=== PATIENT | female | born 1940 | race Caucasian/White ===

== ENCOUNTER 2018-03-26 14:40 | Emergency (ER) | payer MEDICARE, BC ==
--- NOTE | 2018-03-26 14:51 | UC ---
Respiratory Complaint HPI - HPI Summary HPI Summary: 78 yo female presents with post nasal drip and a dry cough for the last 5 days. She has been taking dayquill, nyquill, and cough drops with good relief - but only for a short time. She does not feel short of breath. Previous smoker, but has not smoked in 40+ years. Denies fever, chills, sinus symptoms, sore throat, SOB, chest pain. - History of Current Complaint Stated Complaint: COUGH,COLD Time Seen by Provider: 03/26/18 14:50 Hx Obtained From: Patient Onset/Duration: Gradual Onset Severity Currently: None Character: Cough: Nonproductive - Allergies/Home Medications Allergies/Adverse Reactions: Allergies Allergy/AdvReac Type Severity Reaction Status Date / Time No Known Allergies Allergy Verified 03/26/18 14:58 Home Medications: Home Medications Lisinopril TAB* [Prinivil TAB*] 5 mg PO BEDTIME 03/26/18 [History Confirmed ] PMH/Surg Hx/FS Hx/Imm Hx Endocrine History: Dyslipidemia Cardiovascular History: Hypertension GI/ History: Gastroesophageal Reflux Review of Systems Constitutional: Negative Skin: Negative Eyes: Negative ENT: Negative Respiratory: Cough Cardiovascular: Negative Gastrointestinal: Negative Neurological: Negative Psychological: Negative All Other Systems Reviewed And Are Negative: Yes Physical Exam - Summary Physical Exam Summary: GENERAL: NAD. WDWN. No pain distress. SKIN: No rashes, sores, lesions, or open wounds. HEENT: Head: AT/NC Eyes: EOM intact. Conjunctiva clear without inflammation or discharge. Ears: Hearing grossly normal. TMs intact, no bulging, erythema, or edema. Nose: Nasal mucosa pink and moist. NTTP maxillary and frontal sinus. Throat: Posterior oropharynx without exudates, erythema, or tonsillar enlargement. Uvula midline. NECK: Supple. Nontender. No lymphadenopathy. CHEST: CTAB. No r/r/w. No accessory muscle use. Breathing comfortably and in no distress. CV: RRR. Without m/r/g. Pulses intact. Cap refill <2seconds NEURO: Alert. PSYCH: Age appropriate behavior. Triage Information Reviewed: Yes Vital Signs: Vital Signs: Temp Pulse Resp BP Pulse Ox 97.6 F 62 16 150/82 97 03/26/18 14:50 03/26/18 14:50 03/26/18 14:50 03/26/18 14:50 03/26/18 14:50 Vital Signs Reviewed: Yes Respiratory Course/Dx - Course Course Of Treatment: Bronchitis. Rx for tessalon and cough syrup at bedtime. - Differential Dx/Diagnosis Provider Diagnoses: Bronchitis Discharge - Sign-Out/Discharge Documenting (check all that apply): Patient Departure All imaging exams completed and their final reports reviewed: No Studies - Discharge Plan Condition: Stable Disposition: HOME Prescriptions: Benzonatate CAP* [Tessalon 100 MG CAP*] 100 mg PO TID PRN #21 cap PRN Reason: Cough Codeine Phosphate/Guaifenesin [Guaifen-Codeine 100-10 mg/5 ml] 5 ml PO BEDTIME PRN #30 ml MDD 5mL PRN Reason: Cough Patient Education Materials: Benzonatate (By mouth), Acute Bronchitis (ED) Referrals: Obdulia Roberts MD [Primary Care Provider] - Additional Instructions: If you develop a fever, shortness of breath, chest pain, new or worsening symptoms - please call your PCP or go to the ED. Your blood pressure was mildly elevated at todays visit. Please see your primary provider within 4 weeks for recheck and re-evaluation. - Billing Disposition and Condition Condition: STABLE Disposition: Home
[2018-03-26 14:58] VITALS: BP 150/82
== END 2018-03-26 15:20 | disposition home or self-care (01) ==
LOC: UCEAST 14:40
DX: J40 Bronchitis, not specified as acute or chronic (principal); I10 Essential (primary) hypertension
CPT/HCPCS: 99202; G0463

== ENCOUNTER 2018-09-12 10:54 | Observation (INO) | payer MEDICARE, BC ==
--- NOTE | 2018-09-12 11:17 | ED ---
Neurological HPI - HPI Summary HPI Summary: Pt is a 78 y/o female who presents to the ED c/o right-sided facial droop. Her symptoms began yesterday afternoon around 15:30. However, pt did not call her PCP Dr. Arias until today, who sent her to the ED. She first noticed the symptoms because she kept biting the right side of her tongue. Pt has some left- sided facial droop, but when smiling it becomes right-sided. As per nurse Ashwin, she has mild shakiness of her left hand and states that the left side of her face feels different. However, pt states shes had shakiness for the past few months. Pt denies any paresthesia, aphasia, ALVARADO, dizziness, confusion, numbness, difficulty ambulating, weakness, CP, SOB, abdominal pain, N/V, dysuria, or hematuria. She denies any pain. She was able to ambulate into the room. She is accompanied by her and daughter, who states that her speech sounds slow and slurred. PMHx HTN. She is a former smoker and drinks alcohol daily. Vital signs: HR 65 bpm, BP 168/98, 98% O2 sat. 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 Negative: Unsteady Gait, Headache, Confusion, Dizziness, Numbness, Nausea/Vomiting, Chest Pain, Shortness of Breath TPA Considered: No - Allergy/Home Medications Allergies/Adverse Reactions: Allergies Allergy/AdvReac Type Severity Reaction Status Date / Time No Known Allergies Allergy Verified 03/26/18 14:58 Home Medications: Home Medications amLODIPine TAB* [Norvasc 5 mg TAB*] 5 mg PO DAILY 09/12/18 [History Confirmed ] PMH/Surg Hx/FS Hx/Imm Hx Endocrine/Hematology History: Denies: Hx Diabetes, Hx Thyroid Disease Cardiovascular History: Reports: Hx Hypertension Denies: Hx Hypercholesterolemia, Hx Myocardial Infarction Respiratory History: Denies: Hx Asthma, Hx Chronic Obstructive Pulmonary Disease (COPD) GI History: Denies: Hx Ulcer Musculoskeletal History: Reports: Hx of Fracture(s) - R foot - Surgical History Surgery Procedure, Year, and Place: [place], Infectious Disease History: No Infectious Disease History: Denies: Hx Hepatitis, Hx Human Immunodeficiency Virus (HIV), Traveled Outside the [place] in Last 30 Days - Family History Known Family History: Negative: Cardiac Disease, Hypertension, Diabetes - Social History Occupation: Retired Alcohol Use: Daily Hx Substance Use: No Substance Use Type: Reports: None Hx Tobacco Use: Yes Smoking Status (MU): Former Smoker Review of Systems Negative: Chest Pain Negative: Shortness Of Breath Negative: Abdominal Pain, Vomiting, Nausea Negative: dysuria, hematuria Neurological: Other - right facial droop, left hand shakiness, NEGATIVE: dizziness, aphasia, confusion, difficulty ambulating Positive: Slurred Speech - slow and slurred. Negative: Headache, Weakness, Paresthesia, Numbness All Other Systems Reviewed And Are Negative: Yes Physical Exam - Summary Physical Exam Summary: Appearance: Well-appearing, no pain distress, well-nourished Skin: Warm, color reflects adequate perfusion, dry Head: Normal Head/Face inspection, atraumatic Eyes: Conjunctiva clear ENT: Normal inspection Neck: Supple, no nodes, no JVD Respiratory: Lungs clear, normal breath sounds, no respiratory distress Cardio: RRR, No murmur, pulses normal, brisk capillary refill Abdomen: Soft, nontender Bowel sounds: Present Musculoskeletal: Strength Intact/ROM intact, no calf tenderness, no edema. Psychological: Normal Neuro: A&O x3, CN II-XII intact, motor function 5/5, sensation intact, cerebellar normal, see NIH Triage Information Reviewed: Yes Vital Signs On Initial Exam: Initial Vitals Temp Pulse Resp BP Pulse Ox 98.4 F 72 18 176/82 98 09/12/18 10:58 09/12/18 10:58 09/12/18 10:58 09/12/18 10:58 09/12/18 10:58 Vital Signs Reviewed: Yes - Monty Coma Scale Best Eye Response: 4 - Spontaneous Best Motor Response: 6 - Obeys Commands Best Verbal Response: 5 - Oriented Coma Scale Total: 15 Diagnostics - Vital Signs Vital Signs Temp Pulse Resp BP Pulse Ox 09/12/18 10:58 98.4 F 72 18 176/82 98 - Laboratory Result Diagrams: 09/12/18 11:32 09/12/18 11:32 Lab Statement: Any lab studies that have been ordered have been reviewed, and results considered in the medical decision making process. - Radiology CXR Radiology Interpretation Completed By: Radiologist Summary of Radiographic Findings: No active cardiopulmonary disease is noted. ED physician reviewed radiology report. Brain MRI Radiology Interpretation Completed By: Radiologist Summary of Radiographic Findings: 1. SMALL FOCUS OF RESTRICTED DIFFUSION WITHIN THE LEFT BASAL GANGLIA CONSISTENT WITH SUBACUTE NONHEMORRHAGIC INFARCT. 2. ELEVATED T2/FLAIR SIGNAL IN THE PERIVENTRICULAR, SUBCORTICAL, AND PONTINE WHITE MATTER, NONSPECIFIC, BUT SUGGESTIVE OF CHRONIC SMALL VESSEL ISCHEMIC CHANGE. ED physician reviewed radiology report. - CT Brain CT CT Interpretation Completed By: Radiologist Summary of CT Findings: No intracranial mass or hemorrhage is noted. ED physician reviewed radiology report. - EKG 12:00 Cardiac Rate: NL - 61 bpm EKG Rhythm: Sinus Rhythm ST Segment: Normal Ectopy: None EKG Comparison: Other - No prior to compare. Summary of EKG Findings: An EKG at 12:00 reveals nml AV/IV CT, nml QTc, and nml axis. No acute changes. NIH Scale - NIH Scale Level of Consciousness: Alert/Keenly Responsive Ask Patient the Month and His/Her Age: Both Correct Ask Pt to Open/Close Eyes and Regional Sales Executive/Release Non-Paretic Hand: Both Correctly Best Gaze (Only Horizontal Eye Movement): Normal Visual Field Testing: No Visual Loss Facial Paresis-Pt to Smile & Close Eyes or Grimace Symmetry: Normal/Symmetrical Motor Function - Right Arm: No Drift-Holds 10 Seconds Motor Function - Left Arm: No Drift-Holds 10 Seconds Motor Function - Right Leg: No Drift-Holds 10 Seconds Motor Function - Left Leg: No Drift-Holds 10 Seconds Limb Ataxia-Must be out of Proportion to Weakness Present: Absent Sensory (Use Pinprick to Test Arms/Legs/Trunk/Face): Normal Best Language (Describe Picture, Name Items): No Aphasia Dysarthria (Read Several Words): Normal Extinction and Inattention: No Abnormality Total Score: 0 Re-Evaluation - Re-Evaluation First Eval Re-Evaluation Time: 11:42 Change: Unchanged Comment: Pt is now going to CT. Second Eval Re-Evaluation Time: 13:16 Change: Unchanged Comment: There is no change in her physical exam. When compared to a prior picture, she definitely has a right-sided facial droop. Course/Dx - Course Course Of Treatment: Pt is a 78 y/o female who presents to the ED c/o right- sided facial droop and slurred speech since 15:30 yesterday. A physical exam was normal. GCS of 15. NIH of 0. A CXR was negative. A brain CT was negative. An EKG revealed a normal rate of 61 bpm. Pt medications reviewed this visit. Nurses notes reviewed. Allergies noted. Did not call a Code [facility] because the pt is out of the window. As per Dr. Navarrete pt should be admitted for CVA. Pt is admitted to Dr. Miles with a final dx of CVA. She is agreeable with this plan. - Diagnoses Provider Diagnoses: CVA (cerebral vascular accident) - Physician Notifications Discussed Care Of Patient With: Aimee Navarrete Time Discussed With Above Provider: 13:13 Instructed by Provider To: Other - Dr. Navarrete will see the pt in the ED. At 13: 40 Dr. Navarrete arrived to the room. He states the pt should be admitted for CVA. Dr. Navarrete believes the stroke to be a lacunar stroke and will give ASA and Plavix. At 14:00 Dr. Miles accepted for admission. Discharge - Sign-Out/Discharge Documenting (check all that apply): Patient Departure - Admit Patient Received Moderate/Deep Sedation with Procedure: No - Discharge Plan Condition: Stable Disposition: ADMITTED TO [facility] - Attestation Statements Document Initiated by Scribe: Yes Documenting Scribe: Sade Rodriguez Provider For Whom Scribe is Documenting (Include Credential): Denisha Tovar MD Scribe Attestation: Sade Rodriguez, scribed for Denisha Tovar MD on 09/12/18 at [id number].
[2018-09-12] MEDS ORDERED: NS 0.9% 1000 ML** 1,000 ML IV ONE (11:19)
[2018-09-12 11:45] LABS: ABS Basophils 0.1 10^3/ul (0-0.2); ABS Eosinophils 0.2 10^3/ul (0-0.6); ABS Monocytes 0.4 10^3/ul (0-0.8); ABS Neutrophils 3.4 10^3/ul (1.5-7.7); ABS Nucleated RBC 0 10^3/ul; Eosinophil % 4.7 %; Hematocrit 42 % (33-41); Hemoglobin 14.3 g/dL (12.0-16.0); Lymphocyte % 20.4 %; Mean Corpuscular HGB Conc 34 g/dL (31-36); Mean Corpuscular Hemoglobin 32 pg (27-31); Mean Corpuscular Volume 93 fL (80-97); Mean Platelet Volume 7.5 fL (7.4-10.4); Nucleated Red Blood Cells % 0.1; Platelet Count 325 10^3/uL (150-450); Red Cell Distribution Width 14 % (10.5-15); White Blood Count 5.2 10^3/uL (3.5-10.8)
[2018-09-12 11:54] LABS: Activated Partial Thrombo Time 31.2 seconds (26.0-36.3); INR 0.9 (0.77-1.02)
[2018-09-12 12:03] LABS: ALT 13 U/L (7-52); AST 17 U/L (13-39); Albumin 4.2 g/dL (3.2-5.2); Albumin/Globulin Ratio 1.6 (1-3); Alkaline Phosphatase 71 U/L (34-104); Anion Gap 6 mmol/L (2-11); Blood Urea Nitrogen 11 mg/dL (6-24); CO2 Carbon Dioxide 29 mmol/L (22-32); Calcium 9.4 mg/dL (8.6-10.3); Chloride 105 mmol/L (101-111); EGFR African American 115.4 (>60); EGFR Non-African American 95.4 (>60); Globulin 2.6 g/dL (2-4); Glucose 113 mg/dL (70-100); Potassium 3.6 mmol/L (3.5-5.0); Sodium 140 mmol/L (135-145); Total Protein 6.8 g/dL (6.4-8.9)
[2018-09-12 12:18] LABS: Alcohol < 10 mg/dL (<10)
[2018-09-12 13:34] LABS: Urine Appearance Clear; Urine Bacteria Absent (Absent); Urine Bilirubin Negative (Negative); Urine Blood 1+ (Negative); Urine Color Straw; Urine Glucose Negative (Negative); Urine Ketones Negative (Negative); Urine Nitrite Negative (Negative); Urine Protein Negative (Negative); Urine Red Blood Cell Trace(0-2/hpf) (Absent); Urine Specific Gravity 1.004 (1.010-1.030); Urine Squamous Epithelial Cell Present (Absent); Urine Urobilinogen Negative (Negative); Urine White Blood Cell Trace(0-5/hpf) (Absent)
[2018-09-12 14:13] LABS: Barbiturates Urine Screen None Detected (None Detect); Benzodiazepine Urine Screen None Detected (None Detect); Urine Cannabinoids Screen None Detected (None Detect)
[2018-09-12] MEDS ORDERED: Acetaminophen TAB* 325 MG PO PRN (14:39)
[2018-09-12] MEDS ORDERED: Magnesium Hydroxide LIQ* 30 ML UDC PO PRN (14:39)
[2018-09-12] MEDS ORDERED: Al Hydrox/Mg Hydrox/Simet LIQ* 30 ML UDC PO PRN (14:39)
[2018-09-12] MEDS ORDERED: Aspirin TAB* 325 MG PO ONE (14:50)
--- NOTE | 2018-09-12 15:18 | CONSULT ---
Consult Consult: Ms. Garcias is a 78-year-old female who presented with one day history of right facial weakness. I suspect she has a small lacunar stroke in the presence of high BP. She has an UMN weakness and no weakness to eye closure; therefore, it is unlikely to be Dubose's palsy. I have ordered an MRI of the brain. Please start her on aspirin 81 mg daily, Plavix 75 mg daily, and atorvastatin 40 mg nightly. Please see dictated consult note.
[2018-09-12] MEDS ORDERED: hydrALAZINE IV* 20 MG/ML VIAL IV SLOW PU PRN (16:27)
--- NOTE | 2018-09-12 16:39 | CONS ---
DATE OF CONSULTATION: 09/12/2018. CONSULTING PROVIDER: Dr. Denisha Tovar. REASON FOR CONSULTATION: Right facial droop. HISTORY OF PRESENT ILLNESS: Ms. Aby Garcias is a 78-year-old female with a past medical history of hypertension who presented to [facility] today with new onset of right facial droop. The patient does not recall exactly when the symptoms started, but the noticed drooping of the right side of the face last night after the patient had made dinner. She stated that she noticed some change in her voice and some appearance changes at approximately 12 o'clock on 09/11/2018. She denied any headache, visual disturbance, swallowing difficulty, or focal weakness. She denied any paresthesia. Last known well is unknown. NIH stroke scale is 1 for right facial droop. She was not a candidate for IV TPA or mechanical thrombectomy because there is no last known well time and her NIH stroke scale is low at 1. The patient has been stressed out and her blood pressure has been elevated because she is planning a trip to [place], which she would take off tomorrow. MEDICATIONS: 1. Amlodipine 5 mg daily. 2. She is aspirin naive. FAMILY HISTORY: Mother suffered from a stroke. SOCIAL HISTORY: She lives with her . She denied any excessive alcohol intake or tobacco use. REVIEW OF SYSTEMS: A 14 point review of systems was obtained and otherwise negative, except for what was mentioned in the HPI. PHYSICAL EXAM: General: Well-nourished, well-developed female in no acute distress. Vital Signs: Temperature 98.4, heart rate of 71, respiratory rate of 19, oxygen saturation 97, blood pressure of 191/79. HEENT: Head normocephalic , atraumatic. Eyes: Conjunctivae/corneas are clear. Neck: Supple and symmetrical with no carotid bruit. Lungs: Clear to auscultation bilaterally. Cardiovascular: Regular rate and rhythm with normal S1, S2. Extremities: Normal range of motion with no cyanosis. Skin: No skin lesions or lacerations. Psych: Affect is broad and normal mood. Neurological: Awake, alert, oriented to person, place, time, and general circumstances. Speech and language, including expression, naming, repetition, and comprehension were assessed and found to be normal. Cranial Nerves: Normal confrontation testing bilaterally. Sensation is intact on the forehead, cheeks, and jaw region bilaterally. There is a mild right facial droop with normal strength eyebrow elevation and eye closure. Symmetrical palatal elevation. Normal strength against shoulder shrug. Tongue is symmetrical and midline with no atrophy or fasciculation. Motor Examination: No abnormal movement or pronator drift. 5/5 strength in the upper and lower extremities proximal and distally symmetrically. Reflexes right/left 2/2, biceps 2/2, triceps 2/2, patella 2/3, ankle 2/2, slightly extensor/flexor. Sensation is intact to light touch throughout. Coordination: Normal [id number] and rapid alternating movements. Gait and station: Narrow based, normal stance. LABORATORY DATA: WBC 5.2, hemoglobin 14.3, hematocrit 42, platelet 325; sodium 140, potassium 3.6, chloride 105, creatinine 0.61, lactic acid 0.9. Urine analysis undetected. Urine toxicology is negative. IMAGING STUDIES: CT head without contrast was completed and showed no acute intracranial abnormality. MRI of the brain without contrast showed evidence of small lacunar stroke in the left lenticulostriate/genu of the internal capsule. There is also evidence of chronic small vessel ischemic changes. I personally reviewed this study. ASSESSMENT AND RECOMMENDATION: 1. Acute lacunar stroke in the left lenticulostraite branches due to chronic hypertension. Stress is probably playing a role as the patient was getting everything arranged and ready for her big trip to [place] tomorrow. Her blood pressure is elevated in the ED with systolic ranging as high as 190's. NIH stroke scale is 1. She is not a candidate for IV TPA or mechanical thrombectomy due to the low NIH stroke scale and unknown exact last known well time. The patient is aspirin naive. Recommendation: Please start aspirin 81 mg daily and Plavix 75 mg daily for a total of 28 days. I started the patient on Atorvastatin 40 mg daily. Please check a lipid panel. Please obtain a 2D transthoracic echo with bubble study. Please obtain a carotid ultrasound. No need to evaluate the intracranial vasculature given that the patient has chronic hypertension, her blood pressure is elevated, and this is a lacunar stroke. Discussed secondary stroke prevention. No need for PT/OT/ERCO MACHINE OPERATOR evaluation and treatment since the patient does not have any significant disability and is ambulatory without any limitation. Please do a bedside swallow evaluation. 2. Hypertension: Allow permissive hypertension in the next 24 hours. 3. DVT prophylaxis with Heparin 5,000 units subcutaneously every 8 hours. 4. Anticoagulation therapy: There is no indication for long-term full dose anticoagulation therapy since the patient does not have any evidence of atrial fibrillation. TIME SPENT: 70 minutes of which more than 50 percent was spent obtaining history, examining the patient, and discussing the treatment plan with the patient and her spouse at the bedside. [id number]/[facility] #: [id number] MTDRadha
--- NOTE | 2018-09-12 16:39 | HP ---
ADDENDUM: DIAGNOSTIC STUDIES/LAB DATA: EKG: EKG on 09/12/18, sinus rhythm at a rate of 61 beats per minute, QTc 441, normal axis, no T-wave changes. On 09/12/18, brain MRI. Impression: "Small focus of restrictive diffusion within the left basal ganglia consistent with subacute nonhemorrhagic infarct. Elevated T2/FLAIR signal in the periventricular, subcortical and pontine white matter, nonspecific, but suggestive of chronic small vessel ischemic change." ASSESSMENT AND PLAN: The patient is a 78-year-old female with past medical history of hypertension, who presents to the emergency department with facial droop that started approximately 20 hours prior. The patient would be admitted in observation for: 1. Subacute lacunar cerebrovascular accident. Confirmed with brain MRI. Dr. Navarrete has already seen the patient. He recommends initiating Plavix, statin, and daily aspirin. A 325 aspirin has already been given. Echo with bubble study ordered. Carotid ultrasound ordered. Fasting lipids and hemoglobin A1c ordered. Nursing swallowing study ordered prior to the patient receiving diet. 2. Chronic condition. Hypertension. Holding home amlodipine. Dr. Navarrete recommends maintaining the patient's current blood pressure at this time to maintain perfusion. Recommends lowering blood pressure only if over 220 systolic. 3. FEN: The patient is to receive low sodium diet after she passes the nursing swallow study. 4. Code status: The patient is a full code. 5. DVT prophylaxis: The patient has a high DVT risk level 4. Lovenox daily has been initiated. TIME SPENT: Approximately 55 minutes were spent on this admission, approximately half of this time was spent at bedside. This case was reviewed by my attending physician, Dr. Odalis Miles, and she agrees with this assessment and plan. SCAR TEE [id number]/[facility] #: [id number] MELO
--- NOTE | 2018-09-12 16:48 | HP ---
HISTORY AND PHYSICAL: ADDENDUM: DATE OF VISIT: 09/12/18 Dr. Navarrete stated that MRI/CTA is not necessary at this time. SCAR TEE [id number]/[facility] #: [id number] [facility] SYSTEMRadha
[2018-09-12] MEDS: Clopidogrel TAB* 75 MG PO SCH (16:57)
[2018-09-12] MEDS: Enoxaparin(*) 40 MG/0.4 ML SYR SUBCUT SCH (16:57)
[2018-09-12 17:14] LABS: Activated Partial Thrombo Time 30.8 seconds (26.0-36.3); INR 0.96 (0.77-1.02)
--- NOTE | 2018-09-12 17:55 | HP ---
CC: Dr. Obdulia Roberts* HISTORY AND PHYSICAL: DATE OF ADMISSION: 09/12/18 PRIMARY CARE PROVIDER: Dr. Obdulia Roberts. NEUROLOGIST: Dr. Aimee Navarrete. ATTENDING PHYSICIAN: Dr. Odalis Miles * (dictated by SCAR Locke). CHIEF COMPLAINT: Facial droop. HISTORY OF PRESENT ILLNESS: Aby Garcias is a 78-year-old female with past medical history of hypertension, who presents to the emergency room with facial droop. Facial droop started the day prior at approximately 3 p.m. The patient noticed that she was speaking differently than usual. She and her are unsure of the exact time when they noticed that her right-sided facial droop began. They are both unsure if the drooping has worsened since this time yesterday. The patient denies visual changes, focal weakness, paresthesias, anesthesias, headaches, visual changes, and gait disturbances. Denies recent fall. EMERGENCY DEPARTMENT COURSE: Vital signs upon arriving to the emergency room were temperature of 98.4 degrees Fahrenheit, pulse rate of 72 beats per minute, respiratory rate of 18, oxygen saturation of 98% on room air, blood pressure of 176/82. Labs were overall within normal limits except for elevated glucose to 113. One liter of normal saline was administered in the emergency department. The hospitalist team was asked to evaluate the patient for admission. PAST MEDICAL HISTORY: Hypertension. PAST SURGICAL HISTORY: 1. C-sections in 1968 and 1972. 2. Back surgery in 1989. HOME MEDICATIONS: Amlodipine 5 mg p.o. daily. ALLERGIES: No known drug allergies. FAMILY HISTORY: Father at age 92 of a brain aneurysm. Father had a history of hypertension. Mother at age 86 of unknown cause, though the patient mentions that the mother 6 weeks after her father . Denies history of CVA, TIA, or CAD in her siblings and her children. SOCIAL HISTORY: The patient lives with her , Simone, in [place]. Her is her surrogate decision maker. They have 4 children together. The patient quit smoking cigarettes in approximately the year 1999, prior to that she has smoked for approximately 40 years. The patient drinks 1 alcoholic beverage per day, usually 1 glass of wine or 1 shot of whiskey. The patient denies use of illicit drugs. The patient is retired. REVIEW OF SYSTEMS: An 11-point review of systems was completed and all pertinent positives and negatives are in the HPI. All other systems are negative. PHYSICAL EXAMINATION HEENT: Head: Normocephalic and atraumatic. Eyes: PERRLA and sclerae anicteric. No nystagmus. Visual funez intact to confrontation. ENT: Mucous membranes moist. Tongue midline. NECK: Supple. RESPIRATORY: Clear to auscultation without adventitious lung sounds. CARDIO: Regular rate and rhythm without murmurs, rubs, or gallops. No bruits appreciable at carotid arteries. ABDOMEN: Abdomen is soft, nontender, and nondistended. EXTREMITIES: No clubbing or edema. No calf tenderness bilaterally. NEURO: The patient is alert and oriented x3. Strength is 5/5 bilaterally. Sensation intact bilaterally throughout. The patient has right-sided facial droop at rest and with smiling and baring teeth. The patient is able to equally raise eyebrows. DIAGNOSTIC STUDIES/LAB DATA: White blood cell count 5.2, hemoglobin 14.3, hematocrit 42, platelet count 325. INR 0.90. Sodium 140, potassium 3.6, chloride 105, carbon dioxide 29, BUN 11, creatinine 0.61, glucose 113, lactic acid 0.9. Troponin 0.00. On 09/12/18, chest x-ray, impression: "No active cardiopulmonary disease is noted." On 09/12/18, brain CT, impression: "No intracranial mass or hemorrhage is noted." EKG on 09/12/18, sinus rhythm at a rate of 61 beats per minute, QTc 441, normal axis, no T-wave changes. On 09/12/18, brain MRI. Impression: "Small focus of restrictive diffusion within the left basal ganglia consistent with subacute nonhemorrhagic infarct. Elevated T2/FLAIR signal in the periventricular, subcortical and pontine white matter, nonspecific, but suggestive of chronic small vessel ischemic change." ASSESSMENT AND PLAN: The patient is a 78-year-old female with past medical history of hypertension, who presents to the emergency department with facial droop that started approximately 20 hours prior. The patient would be admitted in observation for: 1. Subacute lacunar cerebrovascular accident. Confirmed with brain MRI. Patient is outside the window for tPA. Patient is not a candidate for embolectomy. Dr. Navarrete has already seen the patient and does not recommend additional imaging with angiography. He recommends initiating Plavix, statin, and daily aspirin. A 325 aspirin has already been given. Echo with bubble study ordered. Carotid ultrasound ordered. Fasting lipids and hemoglobin A1c ordered. Nursing swallowing study ordered prior to the patient receiving diet. Patient's only residual deficit is the right sided facial droop. PT/OT not ordered because patient has no weakness or paresthesias of extremities. 2. Chronic condition. Hypertension. Holding home amlodipine. Dr. Navarrete recommends maintaining the patient's current blood pressure at this time to maintain perfusion. Recommends lowering blood pressure only if over 220 systolic. 3. FEN: The patient is to receive low sodium diet after she passes the nursing swallow study. 4. Code status: The patient is a full code. 5. DVT prophylaxis: The patient has a high DVT risk level 4. Lovenox daily has been initiated. TIME SPENT: Approximately 55 minutes were spent on this admission, approximately half of this time was spent at bedside. This case was reviewed by my attending physician, Dr. Odalis Miles, and she agrees with this assessment and plan. SCAR LOCKE [id number]/CPS #: [id number]/CPS #: [id number]/CPS #: [id number] MELO
[2018-09-12] MEDS ORDERED: Atorvastatin* 40 MG TAB PO SCH (21:00)
[2018-09-13 05:42] LABS: ABS Basophils 0.1 10^3/ul (0-0.2); ABS Eosinophils 0.3 10^3/ul (0-0.6); ABS Lymphocytes 1.5 10^3/ul (1.0-4.8); ABS Monocytes 0.5 10^3/ul (0-0.8); ABS Neutrophils 3.1 10^3/ul (1.5-7.7); ABS Nucleated RBC 0 10^3/ul; Hematocrit 38 % (33-41); Lymphocyte % 27.4 %; Mean Corpuscular HGB Conc 34 g/dL (31-36); Mean Corpuscular Hemoglobin 31 pg (27-31); Mean Corpuscular Volume 93 fL (80-97); Mean Platelet Volume 7.6 fL (7.4-10.4); Nucleated Red Blood Cells % 0; Platelet Count 287 10^3/uL (150-450); Red Blood Count 4.12 10^6 /uL (3.70-4.87); Red Cell Distribution Width 13 % (10.5-15); White Blood Count 5.4 10^3/uL (3.5-10.8)
[2018-09-13 05:59] LABS: BUN/Creatinine Ratio 11.9 (8-20); Calcium 8.7 mg/dL (8.6-10.3); EGFR African American 119.9 (>60); EGFR Non-African American 99.1 (>60); HDL Cholesterol 55.4 mg/dL; Potassium 3.4 mmol/L (3.5-5.0)
[2018-09-13] MEDS: Clopidogrel TAB* 75 MG PO SCH (08:21)
[2018-09-13] MEDS ORDERED: Aspirin 81 mg CHEW TAB* 81 MG TAB.CHEW PO SCH (09:00)
--- NOTE | 2018-09-13 09:27 | PN ---
Subjective Date of Service: 09/13/18 Length of Stay: 1 Days Neurology is following for stroke. Interval History: She is in good spirits today. She has no focal weakness. The right facial weakness is improving. She cancelled her trip to [place]. Review of Systems: Denied CP, SOB, or palpitations. Objective Active Medications: Acetaminophen (Tylenol Tab*) 650 mg PO Q4H PRN PRN Reason: FEVER/PAIN Al Hydrox/Mg Hydrox/Simethicone (Maalox Plus*) 30 ml PO Q6H PRN PRN Reason: INDIGESTION Aspirin (Aspirin 81 Mg Chew Tab*) 81 mg PO DAILY [facility] Last Admin: 09/13/18 08:21 Dose: 81 mg Atorvastatin Calcium (Lipitor*) 40 mg PO 2100 [facility] Last Admin: 09/12/18 21:39 Dose: 40 mg Clopidogrel Bisulfate (Plavix Tab*) 75 mg PO DAILY [facility] Last Admin: 09/13/18 08:21 Dose: 75 mg Enoxaparin Sodium (Lovenox(*)) 40 mg SUBCUT Q24H [facility] Last Admin: 09/12/18 16:57 Dose: 40 mg Hydralazine HCl (Apresoline Iv*) 5 mg IV SLOW PU Q6H PRN PRN Reason: SYSTOLIC BP GREATER THAN: Magnesium Hydroxide (Milk Of Magnjennifer Liq*) 30 ml PO Q4H PRN PRN Reason: CONSTIPATION Vital Signs 09/12/18 09/12/18 09/12/18 10:58 11:19 11:22 Temperature 98.4 F Pulse Rate 72 Respiratory 18 19 Rate Blood Pressure 176/82 173/94 (mmHg) O2 Sat by Pulse 98 97 Oximetry 09/12/18 09/12/18 09/12/18 11:38 12:00 12:16 Temperature Pulse Rate 68 62 59 Respiratory 20 17 17 Rate Blood Pressure 168/98 187/100 156/81 (mmHg) O2 Sat by Pulse 96 95 96 Oximetry 09/12/18 09/12/18 09/12/18 12:30 12:45 13:06 Temperature Pulse Rate 60 61 66 Respiratory 14 18 17 Rate Blood Pressure 152/76 162/88 (mmHg) O2 Sat by Pulse 97 98 98 Oximetry 09/12/18 09/12/18 09/12/18 13:07 13:15 13:30 Temperature Pulse Rate 61 66 61 Respiratory 16 18 14 Rate Blood Pressure 179/87 164/82 147/76 (mmHg) O2 Sat by Pulse 98 97 97 Oximetry 09/12/18 09/12/18 09/12/18 13:46 15:20 15:54 Temperature 98.9 F 97.5 F Pulse Rate 60 62 Respiratory 19 17 16 Rate Blood Pressure 191/79 175/97 173/71 (mmHg) O2 Sat by Pulse 96 98 Oximetry 09/12/18 09/12/18 09/13/18 19:31 20:00 00:49 Temperature 97.6 F 97.3 F Pulse Rate 65 60 Respiratory 18 18 16 Rate Blood Pressure 157/72 154/74 (mmHg) O2 Sat by Pulse 97 97 Oximetry 09/13/18 09/13/18 09/13/18 04:15 07:22 07:25 Temperature 97.9 F 97.2 F Pulse Rate 60 57 Respiratory 16 16 16 Rate Blood Pressure 163/67 160/75 (mmHg) O2 Sat by Pulse 96 96 Oximetry Intake and Output Last 24 Hours 09/11/18 09/12/18 09/13/18 09/14/18 06:59 06:59 06:59 06:59 Intake Total 1240 Balance 1240 Weight 137 lb Intake: IV Fluids 1000 Oral 240 Oxygen Devices in Use Now: None Neurology Exam: General: Well nourished, well developed, and in no acute distress HEENT: Normocephelic/atraumatic, sclera anicteric, mucous membranes moist Neck: Supple Chest: Clear to auscultation bilaterally Cardiovascular: Regular rate and rhythm without murmurs, rubs, gallops Extremities: No clubbing, cyanosis, or edema Neurological Findings: Awake, alert, and oriented to person, place, and time. Speech: fluent without dysarthria, repetition intact Cranial Nerve: PERRL, EOM intact, mild right facial droop Motor: s/s throughout, proximal and distal extremities x4 tone/bulk normal Sensation: intact to LT/PP bilaterally upper and lower extremities Deep Tendon Reflex: 2+ symmetric in the upper/lower extremities, Babinski - down going Finger to nose. Reduce rapid alternative movements on the right Gait: intact with good arm swing and stride Result Diagrams: 09/13/18 05:17 09/13/18 05:17 Assessment/Plan 1. Acute left lacunar stroke involving the left lenticulostraite branches- Etiology: chronic hypertension. She is tolerating DAPT and atorvastatin therapies. Discontinue Plavix on 2018. LDL- 122 BP goal: normotensive. Stroke education and counseling was done today. She was advised to reduce her sodium intake and start exercising. Pending carotid ultrasound and 2-D TTE. 2. Hypertension- restart Norvasc 5 mg daily. Disposition: to home today if the above testing is unremarkable. I will be more than happy to follow-up with her in 4 weeks. We will arrange a follow up.
[2018-09-13 12:32] VITALS: BP 165/82
[2018-09-13] MEDS ORDERED: Potassium Chlor TAB* 20 MEQ TAB.ER PO ONE (12:35)
[2018-09-13] MEDS: Enoxaparin(*) 40 MG/0.4 ML SYR SUBCUT SCH (13:45)
--- NOTE | 2018-09-13 14:19 | ECHO ---
Patient: SAKINA PAUL [facility] Rec#: [id number] : 1940 Date: 09/13/2018 Age: 78y Height: 157 cm / 61.8 in Weight: 62 kg / 136.6 lbs Sex: F BSA: 1.62 Room#: 433 Admit Date#: 09/12/2018 Type: Inpatient Referring: Deisy Colbert Reading: Dixon Arias MD Production Sorter: Marta Park RDCS CC: Obdulia Roberts MD Transthoracic Echocardiogram Indication: TIA BP: 163/67 HR: 59 Rhythm: Bradycardia Findings History: HTN, smoker. Technical Comments: The study quality is fair. Completed at 1330. Left Ventricle: The left ventricular chamber size is normal. Mild concentric left ventricular hypertrophy is observed. There is a prominent septal knuckle. Global left ventricular wall motion and contractility are within normal limits. There is normal left ventricular systolic function. The estimated ejection fraction is 60-65%. Abnormal left ventricular diastolic function is observed. Abnormal left ventricular diastolic filling is observed, consistent with impaired relaxation. Left Atrium: The left atrial chamber size is normal. Right Ventricle: Moderator Band present. The right ventricular cavity size is normal. The right ventricular global systolic function is normal. Right Atrium: The right atrial cavity size is normal. Interatrial septum appears intact without evidence of shunting. The bubble study is negative. A patent foramen ovale is not demonstrated with color Doppler and agitated contrast. Aortic Valve: The aortic valve is trileaflet. There is mild thickening of the left coronary cusp. There is a trace of aortic regurgitation. There is no evidence of aortic stenosis. Mitral Valve: The mitral valve leaflets are mildly thickened. There is a trace of mitral regurgitation. There is no evidence of mitral stenosis. Tricuspid Valve: The tricuspid valve leaflets are normal. There is trace to mild tricuspid regurgitation. The right ventricular systolic pressure is estimated at 26 mmHg. No pulmonary hypertension is noted. There is no tricuspid stenosis. Pulmonic Valve: The pulmonic valve appears normal. There is a trace pulmonic regurgitation. There is no pulmonic stenosis. Pericardium: There is no significant pericardial effusion. Aorta: There is borderline dilatation of the ascending aorta. There is no dilatation of the aortic arch. The aortic root is normal in size. Pulmonary Artery: The main pulmonary artery appears normal. Venous: The inferior vena cava appears normal in size. There is a greater than 50% respiratory change in the inferior vena cava dimension. Contrast: Normal saline was used as contrast for the bubble study. Images 40 and 41. Intravenous contrast was used to help determine presence of intracardiac shunting. Summary: There was not any prior study for comparison. Conclusions Mild concentric left ventricular hypertrophy is observed. There is a prominent septal knuckle. The estimated ejection fraction is 60-65%. Abnormal left ventricular diastolic filling is observed, consistent with impaired relaxation. Interatrial septum appears intact without evidence of shunting. The bubble study is negative. There is mild thickening of the left coronary cusp. There is a trace of aortic regurgitation. There is a trace of mitral regurgitation. There is trace to mild tricuspid regurgitation. There is borderline dilatation of the ascending aorta. Measurements Name Value Normal Range RVIDd (AP) 2D 3 cm (0.9 - 2.6) RVDdMajor (2D) 4.2 cm (2.2 - 4.4) RAd ISD 4CH 4 cm (3.4 - 4.9) RA (A4C)W 3.2 cm (2.9 - 4.6) IVSd (2D) 1.1 cm (0.6 - 1) LVPWd (2D) 1.1 cm (0.6 - 1) LVIDd (2D) 4 cm (3.6 - 5.4) LVIDs (2D) 2.6 cm - LV FS (2D) 35 % (25 - 45) Aortic Annulus 2 cm (1.4 - 2.6) Ao root diameter (2D) 2.9 cm (2.1 - 3.5) Ascending Ao 3.4 cm (2.1 - 3.4) Aortic arch 2.5 cm (1.8 - 3.4) LA dimension (AP) 2D 3.1 cm (2.3 - 3.8) LAd ISD 4CH 4.7 cm (2.9 - 5.3) LA ISD 4CH W 4.5 cm (2.5 - 4.5) Name Value Normal Range LA ESV BP (A/L) index 30 ml/m2 - Name Value Normal Range MV E-wave Vmax 0.7 m/sec - MV deceleration time 236 msec - MV A-wave Vmax 1.1 m/sec - MV E:A ratio 0.7 ratio - LV septal e' Vmax 0.05 m/sec - LV lateral e' Vmax 0.06 m/sec - LV E:e' septal ratio 14 ratio - LV E:e' lateral ratio 11.7 ratio - Name Value Normal Range AV Vmax 1.4 m/sec - AV VTI 27 cm - AV peak gradient 7 mmHg - AV mean gradient 3 mmHg - LVOT Vmax 1 m/sec - LVOT VTI 26 cm - LVOT peak gradient 4 mmHg - LVOT mean gradient 2 mmHg - M[place]ISON Vmax 0.6 m/sec - Name Value Normal Range TR Vmax 2.4 m/sec - TR peak gradient 23 mmHg - RAP 3 mmHg - RVSP 26 mmHg - IVC diameter 1.6 cm - Name Value Normal Range PV Vmax 1 m/sec - PV peak gradient 4 mmHg -
--- NOTE | 2018-09-13 20:57 | DS ---
CC: Dr. Obdulia Roberts; Dr. Aimee Navarrete * DISCHARGE SUMMARY: DATE OF ADMISSION: 09/12/18 DATE OF DISCHARGE: 09/13/18 PRIMARY CARE PROVIDER: Dr. Obdulia Roberts. ATTENDING PHYSICIAN: Dr. Odalis Miles * (dictated by Jennyfer See NP). PRIMARY DIAGNOSIS: Acute lacunar cerebrovascular accident. SECONDARY DIAGNOSIS: Hypertension. STUDIES WHILE IN THE HOSPITAL: 1. Brain CT on 09/12/18, reads as no intracranial mass or hemorrhage. 2. Chest x-ray on 09/12/18, reads as no active cardiopulmonary disease. 3. EKG on 09/12/18, shows normal sinus rhythm with a rate of 61, QTc 441. No ischemic changes. 4. Brain MRI on 09/12/18, reads as small focus of restricted diffusion of the left basal ganglia consistent with subacute nonhemorrhagic infarct. Elevated T2 -FLAIR signal in the periventricular, subcortical and pontine white matter, nonspecific, but suggestive of chronic small-vessel ischemic change. 5. Transthoracic echocardiogram on 09/13/18, reads as mild concentric left ventricular hypertrophy is observed. There is a prominent septal knuckle. The estimated ejection fraction is 60% to 65%. Abnormal left ventricular diastolic filling is observed consistent with impaired relaxation. Interatrial septum appears intact without evidence of shunting. The bubble study is negative. There is mild thickening of the left coronary cusp. There is trace aortic regurgitation. There is trace mitral regurgitation. There is trace to mild tricuspid regurgitation. There is borderline dilation of the ascending aorta. 6. Carotid Doppler study on 09/13/18, reads as no hemodynamically significant stenosis of the left or right internal carotid arteries. HISTORY OF PRESENT ILLNESS AND HOSPITAL COURSE: Ms. Garcias is a 78-year- old female with past medical history of hypertension, who presented to the emergency room on 09/12/18 with complaints of a facial droop. Please see the history and physical by SCAR Locke, for a complete summary of the events leading up to this hospitalization. In short, the patient reported that her facial droop started approximately 24 hours prior to presenting to the emergency room. She did not have any difficulty with speech, though noted that she did have a right-sided facial droop. She had no other neurological deficits. In the emergency room, the patient had imaging as noted above and due to the concern for acute CVA, the patient was admitted by hospitalist service. The patient had an uneventful night. There were no abnormalities noted on telemetry. The patient was seen in consultation by Dr. Navarrete from Neurology, who recommended placing the patient on low-dose aspirin and Plavix. He recommended checking a lipid panel, transthoracic echocardiogram with bubble study, and a carotid ultrasound. He also recommended permissive hypertension for the next 24 hours. Neurological checks by nursing were stable overnight. Dr. Navarrete saw the patient again this morning and at that time advised that the patient could be discharged today as long as her carotid ultrasound and TTE were unremarkable. He felt as though the etiology of this CVA was chronic hypertension and recommended the patient take Plavix for 30 days. Imaging was unremarkable as noted above. On exam today, the patient reports feeling well. She is anxious to go home. She has no focal neurological deficits except for a right-sided facial droop, which the patient reports is consistent with the facial droop from yesterday. Ms. Garcias is stable for discharge today. Vital signs are as follows: Temp 97.5, heart rate 58, respiratory rate 16, oxygen saturation 96% on room air , blood pressure 165/82. DISCHARGE MEDICATIONS: New medications: 1. Aspirin 81 mg p.o. daily. 2. Atorvastatin 40 mg p.o. daily. 3. Clopidogrel 75 mg p.o. daily. Continued medication: Amlodipine 5 mg p.o. daily. DISCHARGE PLAN: Ms. Garcias will be discharged home. Activity will be as tolerated. Diet will be low-salt. The patient has been advised to increase her activity level and work to manage her blood pressure with her primary care physician. Medications are noted above. The patient has been started on aspirin, Plavix, and atorvastatin per Dr. Navarrete's recommendations. She will need to stop taking the Plavix on 10/13/18. She has been prescribed with a 30- day supply of Plavix to last her until that time and then she should continue taking the aspirin for antiplatelet therapy. She will need to follow up with her primary care provider in 4 to 7 days and will need to discuss further blood pressure management at that time. I will note that the patient has been hypertensive here, though we have been holding her amlodipine and allowing for permissive hypertension, so her blood pressure will need to be reassessed when she is back on her amlodipine. She will additionally need to follow up with Dr. Navarrete in approximately 1 month and he has indicated that his office will call her with an appointment. The patient has been instructed to return to the emergency room or nearest hospital for any worsening of symptoms, shortness of breath, lightheadedness, dizziness, chest discomfort, high fevers, chills, night sweats, loss of consciousness, or any other worrisome signs or symptoms. DISCHARGE CONDITION: Stable. DISCHARGE DISPOSITION: Home. This is a summarized report of a complex medical history and hospital stay. For further details, please see the entire medical record. TIME SPENT: Approximately 40 minutes was spent on this discharge. JENNYFER SEE NP [id number]/[facility] #: [id number] MELO
== END 2018-09-13 15:42 | disposition home or self-care (01) ==
LOC: ED 10:54 → MEDTELE 14:39
PROVIDERS: ADMIT Internal Medicine; ATTEND Internal Medicine
DX: I63.81 Other cerebral infarction due to occlusion or stenosis of small artery (principal); I10 Essential (primary) hypertension; Z79.82 Long term (current) use of aspirin; R47.81 Slurred speech; Z87.891 Personal history of nicotine dependence; I07.1 Rheumatic tricuspid insufficiency
CPT/HCPCS: 36415; 70450; 70551; 71046; 80048; 80053; 80061; 80307; 80320; 81003; 81015; 83036; 83605; 84484; 85025; 85610; 85730; 87086; 93005; 93306; 93880; 96372; 99284; A9270-GY; G0378; G0480; J1650

== ENCOUNTER 2024-04-02 13:57 | Observation (INO) ==
[2024-04-02 14:22] LABS: ABS Basophils 0.1 10^3/uL (0.0-0.1); ABS Eosinophils 0.4 10^3/uL (0.0-0.5); ABS Lymphocytes 1.4 10^3/uL (1.0-4.8); ABS Monocytes 0.6 10^3/uL (0.0-0.9); ABS Neutrophils 4.1 10^3/uL (1.5-7.6); ABS Nucleated RBC 0.01 10^3/ul; Eosinophil % 6.3 %; Hematocrit 41.1 % (35-45); Lymphocyte % 21.2 %; Mean Corpuscular Hemoglobin 31.4 pg (27-33); Mean Corpuscular Hgb Conc 34.2 g/dL (31-36); Mean Corpuscular Volume 91.8 fL (80-97); Mean Platelet Volume 7.9 fL (7.5-11.2); Nucleated Red Blood Cells % 0.2 %/100WBC (0.0-0.8); Platelet Count 318 10^3/uL (150-450); Red Blood Count 4.48 10^6/uL (3.63-4.92); Red Cell Distribution Width 13.4 % (12-17); White Blood Count 6.5 10^3/uL (3.8-11.8)
[2024-04-02 14:35] LABS: INR 0.99 (0.85-1.14)
[2024-04-02 14:47] LABS: High Sens Troponin Baseline < 3 pg/mL (<15)
[2024-04-02 15:11] LABS: ALT 19 U/L (7-52); AST 19 U/L (13-39); Albumin 4.3 g/dL (3.2-5.2); Albumin/Globulin Ratio 1.7 (1-3); Alkaline Phosphatase 87 U/L (35-149); Anion Gap 7 mmol/L (2-16); Blood Urea Nitrogen 10 mg/dL (6-24); CO2 Carbon Dioxide 30 mmol/L (22-32); Calcium 9.9 mg/dL (8.6-10.3); Chloride 103 mmol/L (101-111); Globulin 2.6 g/dL (2-4); Glucose 106 mg/dL (70-100); Potassium 3.9 mmol/L (3.5-5.0); Sodium 140 mmol/L (135-145); Total Bilirubin 0.6 mg/dL (0.2-1.0); Total Protein 6.9 g/dL (6.4-8.9); eGFR CKD-EPI 86.3 (>60)
[2024-04-02 16:02] LABS: High Sensitivity Troponin 1 Hr < 3 pg/mL (<15)
[2024-04-03] MEDS: Enoxaparin 40 MG/0.4 ML SYR SUBCUT SCH (00:09)
[2024-04-03 04:17] LABS: Cholesterol 169 mg/dL; HDL Cholesterol 79.8 mg/dL; LDL Cholesterol 64 mg/dL; Triglycerides 127 mg/dL
[2024-04-03 06:04] LABS: Creatinine, Serum 0.61 mg/dL (0.51-0.95); Magnesium 1.9 mg/dL (1.9-2.7); Potassium 3.6 mmol/L (3.5-5.0); eGFR CKD-EPI 89.2 (>60)
[2024-04-03 14:29] VITALS: BP 152/88
== END 2024-04-03 14:22 | disposition home or self-care (01) ==
LOC: ED 13:57 → EDHOLD 13:57 → SUATTDRO 17:27 → EDHOLD 04-03 14:21
PROVIDERS: ADMIT Hospitalist; ATTEND Internal Medicine